=== PATIENT | male | born 1970 | race Caucasian/White ===

== ENCOUNTER 2017-10-22 18:08 | Emergency (ER) | payer OTHER ==
[~2017-10-22] VITALS: Ht 177.8 cm; Wt 108.9 kg
[2017-10-22 18:35] VITALS: BP 137/92
== END 2017-10-22 20:14 | disposition home or self-care (01) ==
LOC: ER 18:08
DX: M25.461 Effusion, right knee (principal); M25.561 Pain in right knee
CPT/HCPCS: 73562

== ENCOUNTER 2021-09-09 16:50 | Inpatient (IN) | payer OTHER ==
[~2021-09-09] VITALS: Ht 180.3 cm; Wt 97.5 kg
[2021-09-09 18:12] LABS: Albumin 3.8 g/dL (3.4-5.0); Basophils # (auto) 0.2 10 ^3/uL (0-0.2); Basophils % (auto) 1.5 % (0.0-2.0); Calcium 8.9 mg/dL (8.5-10.1); Eosinophils # (auto) 0.1 10 ^3/uL (0-0.8); Eosinophils % (auto) 1.3 % (0.0-7.0); Hematocrit 43.9 % (41.0-53.0); Hemoglobin 15.1 g/dL (13.5-17.5); Lymphocytes # (auto) 2.4 10 ^3/uL (0.4-5.4); Lymphocytes % (auto) 23.3 % (10.0-50.0); Mean Corpuscular Hgb Conc. 34.3 g/dL (32.0-36.0); Mean Corpuscular Volume 84.5 fL (80.0-100.0); Monocytes # (auto) 0.8 10 ^3/uL (0-1.3); Neutrophils # (auto) 6.8 10 ^3/uL (1.6-8.6); Neutrophils % (auto) 65.9 % (37.0-80.0); Potassium 4.2 mmol/L (3.5-5.1); Red Cell Distribution Width 13.6 % (11.8-14.3); White Blood Cell 10.4 10^3/uL (4.4-10.8)
[2021-09-09 18:15] LABS: BUN/Creatinine Ratio 11.7
[2021-09-09 18:18] LABS: Bilirubin, Total 0.4 mg/dL (0.2-1.0); Total Protein 7.2 g/dL (6.4-8.2)
[2021-09-09 18:34] LABS: Urine Bacteria FEW /hpf (None Seen); Urine Blood Negative /uL (Negative); Urine Mucus FEW (None Seen); Urine Specific Gravity 1.025 (1.001-1.035); Urine WBC 1 /hpf (0 - 3)
[2021-09-09] MEDS ORDERED: HYDROcodone-ACET 5/325MG TAB PO ONE (20:45)
[2021-09-09] MEDS ORDERED: LISINOPRIL 10 MG TAB PO ONE (22:45)
[2021-09-09] MEDS ORDERED: hydrALAZINE HCL 20 MG/ML VL IV PRN (22:45)
[2021-09-09] MEDS ORDERED: DEXTROSE (50%) 50ML SYRG IV PRN (22:45)
[2021-09-09] MEDS ORDERED: NITROGLYCERIN 0.4 MG SL TAB SL PRN (22:45)
[2021-09-09] MEDS ORDERED: ENOXAPARIN SOD 100 MG/1 ML SYRINGE SC ONE (22:45)
[2021-09-09] MEDS ORDERED: ACETAMINOPHEN 325 MG TAB PO PRN (22:45)
[2021-09-09] MEDS ORDERED: ATORVASTATIN 20 MG TAB PO ONE (22:45)
[2021-09-09] MEDS ORDERED: MORPHINE SULFATE INJECTION 2 MG/ML SYRG IV PRN (22:45)
[2021-09-09] MEDS ORDERED: ONDANSETRON HCL 4 MG/2 ML VIAL IV PRN (22:45)
[2021-09-09] MEDS ORDERED: TEMAZEPAM 15 MG CAP PO PRN (22:45)
[2021-09-09] MEDS ORDERED: METF-370 PO (23:29)
[2021-09-09] MEDS ORDERED: ATOR10TA PO (23:29)
[2021-09-09] MEDS ORDERED: METO-289 PO (23:29)
[2021-09-09] MEDS ORDERED: ASPI-543 PO (23:29)
[2021-09-10] VITALS (13 sets, daily range): BP systolic 128–168; BP diastolic 76–100
[2021-09-10 05:40] LABS: Basophils # (auto) 0.2 10 ^3/uL (0-0.2); Basophils % (auto) 1.4 % (0.0-2.0); Eosinophils # (auto) 0.2 10 ^3/uL (0-0.8); Eosinophils % (auto) 1.7 % (0.0-7.0); Hematocrit 42.4 % (41.0-53.0); Hemoglobin 14.8 g/dL (13.5-17.5); Lymphocytes # (auto) 3.6 10 ^3/uL (0.4-5.4); Lymphocytes % (auto) 31.9 % (10.0-50.0); Mean Corpuscular Hemoglobin 29.3 pg (28.0-32.0); Mean Corpuscular Hgb Conc. 34.8 g/dL (32.0-36.0); Mean Corpuscular Volume 84.2 fL (80.0-100.0); Monocytes % (auto) 8.5 % (0.0-12.0); Neutrophils # (auto) 6.3 10 ^3/uL (1.6-8.6); Neutrophils % (auto) 56.5 % (37.0-80.0); Nucleated Red Blood Cells % 0.2 %; Red Blood Cells 5.04 10^6/uL (4.5-5.90); Red Cell Distribution Width 13.4 % (11.8-14.3); White Blood Cell 11.2 10^3/uL (4.4-10.8)
[2021-09-10 05:56] LABS: Albumin 3.5 g/dL (3.4-5.0); Potassium 3.7 mmol/L (3.5-5.1)
[2021-09-10 06:02] LABS: Bilirubin, Total 0.4 mg/dL (0.2-1.0); Calcium 8.8 mg/dL (8.5-10.1); Total Protein 6.8 g/dL (6.4-8.2)
[2021-09-10] MEDS: ACCU-CHEK COMFORT CURVE STRIP VI SCH ×4 (06:21→21:53)
[2021-09-10] MEDS: InsuLIN REG 1unit/0.01ml Soln (100units/ml) SC SCH ×4 (06:22→21:54)
[2021-09-10] MEDS ORDERED: LIDOCAINE 2%HCL (LOCAL ANESTH.) INJ 10ml MDV ONE (08:46)
[2021-09-10] MEDS ORDERED: IODIXANOL 320MG/ML 100ML BTL IV ONE ×3 (08:46→10:27)
[2021-09-10] MEDS ORDERED: ANGIOMAX 250 MG VIAL IV ONE ×2 (09:19→10:13)
[2021-09-10] MEDS ORDERED: fentaNYL CITRATE 100 MCG/2 ML VL ONE (09:20)
[2021-09-10] MEDS ORDERED: diphenhdrAMINE HCL 50 MG/1 ML VL ONE (09:20)
[2021-09-10] MEDS ORDERED: HEPARIN SODIUM (PORCINE) 5000 UNITS/ML 1ML VIAL ONE (09:20)
[2021-09-10] MEDS ORDERED: VERAPAMIL 2.5MG/ML INJ 2ML VIAL IV ONE (09:20)
[2021-09-10] MEDS ORDERED: NITROGLYCERIN 5MG/ML 10ML VIAL IV ONE (09:20)
[2021-09-10] MEDS ORDERED: SODIUM CHL 0.9% 100 ML ONE (09:21)
[2021-09-10] MEDS: METOPROLOL SUCCINATE XL 50 MG TAB PO SCH (10:00)
[2021-09-10] MEDS ORDERED: LISINOPRIL 10 MG TAB PO SCH (10:00)
[2021-09-10] MEDS: PANTOPRAZOLE 40 MG TAB PO SCH (10:00)
[2021-09-10] MEDS: ENOXAPARIN SOD 40 MG/0.4 ML SYRINGE SC SCH (10:00)
[2021-09-10] MEDS: ASPirin 81 mg TAB PO SCH (10:00)
[2021-09-10] MEDS ORDERED: SODIUM CHL 0.9% 50 ML ONE (10:13)
[2021-09-10] MEDS ORDERED: HYDROmorphone HCL 2 MG/ML VL ONE (10:37)
[2021-09-10] MEDS ORDERED: ASPirin 81 mg TAB ONE (10:42)
[2021-09-10] MEDS ORDERED: TICAGRELOR 90 MG TAB ONE (10:42)
[2021-09-10] MEDS: amLODIPine BESYLATE 5 MG TAB PO SCH (12:30)
[2021-09-10 12:57] LABS: Cholesterol 187 mg/dL (< 200)
[2021-09-10 13:00] LABS: HDL Cholesterol 30 mg/dL (40-59); LDL Cholesterol 116 mg/dL (< 100); Triglycerides 322 mg/dL (< 150)
[2021-09-10] MEDS ORDERED: TICAGRELOR 90 MG TAB PO SCH (20:00)
[2021-09-10] MEDS: LISINOPRIL 10 MG TAB PO SCH (21:53)
[2021-09-10] MEDS ORDERED: ATORVASTATIN 20 MG TAB PO SCH ×2 (22:00)
[2021-09-11 05:00] VITALS: BP 145/91
[2021-09-11 06:23] LABS: Calcium 8.8 mg/dL (8.5-10.1); Potassium 3.8 mmol/L (3.5-5.1)
[2021-09-11 06:25] LABS: BUN/Creatinine Ratio 11.9
[2021-09-11] MEDS: ACCU-CHEK COMFORT CURVE STRIP VI SCH ×2 (06:44→12:13)
[2021-09-11] MEDS: InsuLIN REG 1unit/0.01ml Soln (100units/ml) SC SCH ×2 (06:45→12:18)
[2021-09-11 09:00] VITALS: BP 143/90
[2021-09-11] MEDS ORDERED: TICAGRELOR 90 MG TAB PO SCH (10:00)
[2021-09-11] MEDS: PANTOPRAZOLE 40 MG TAB PO SCH (10:23)
[2021-09-11] MEDS: ASPirin 81 mg TAB PO SCH (10:23)
[2021-09-11] MEDS: METOPROLOL SUCCINATE XL 50 MG TAB PO SCH (10:24)
[2021-09-11] MEDS: LISINOPRIL 10 MG TAB PO SCH (10:24)
[2021-09-11] MEDS: amLODIPine BESYLATE 5 MG TAB PO SCH (10:24)
[2021-09-11] MEDS: ENOXAPARIN SOD 40 MG/0.4 ML SYRINGE SC SCH (10:28)
[2021-09-11] MEDS ORDERED: AMLO-496 PO (11:13)
[2021-09-11] MEDS ORDERED: ATOR80TA PO (11:13)
[2021-09-11] MEDS ORDERED: LISI20TA28 PO (11:13)
[2021-09-11] MEDS ORDERED: TICA90TA PO (11:13)
[2021-09-11 13:00] VITALS: BP 120/78
== END 2021-09-11 13:54 | disposition home or self-care (01) | DRG 246 ==
LOC: EDBD 16:50 → ER 16:50 → TELE 22:31 → TELE-EAST 23:54
PROVIDERS: ADMIT Nurse Practitioner; ATTEND Family Medicine
PROC: 4A023N7 Measurement of Cardiac Sampling and Pressure, Left Heart, Percutaneous Approach (ICD-10-PCS; principal; 2021-09-10)
PROC: 027035Z Dilation of Coronary Artery, One Artery with Two Drug-eluting Intraluminal Devices, Percutaneous Approach (ICD-10-PCS; 2021-09-10)
PROC: B211YZZ Fluoroscopy of Multiple Coronary Arteries using Other Contrast (ICD-10-PCS; 2021-09-10)
DX: I21.4 Non-ST elevation (NSTEMI) myocardial infarction (principal); I50.43 Acute on chronic combined systolic (congestive) and diastolic (congestive) heart failure; E66.01 Morbid (severe) obesity due to excess calories; E78.00 Pure hypercholesterolemia, unspecified; E88.81 Metabolic syndrome and other insulin resistance; Z20.822 Contact with and (suspected) exposure to COVID-19; E78.5 Hyperlipidemia, unspecified; I25.10 Atherosclerotic heart disease of native coronary artery without angina pectoris; I11.0 Hypertensive heart disease with heart failure; Z82.49 Family history of ischemic heart disease and other diseases of the circulatory system; Z86.16 Personal history of COVID-19; E11.65 Type 2 diabetes mellitus with hyperglycemia; Z68.34 Body mass index [BMI] 34.0-34.9, adult
CPT/HCPCS: 36415; 71046; 80048; 80053; 80061; 81001; 82962; 83036; 83735; 83880; 84484; 85025; 85379; 92928; 92929; 93005; 93306; 93458; 96372; 99152; 99153; 99291; C1874; G0378; J1815; J2001; J3490; Q9967